=== PATIENT | female | born 1985 | race Caucasian/White ===

== ENCOUNTER → 2017-12-23 | Outpatient (CLI) | payer OTHER ==
[~2017-12-23] VITALS: Ht 167.6 cm; Wt 60.6 kg
[~2017-12-23] MED LIST: HYDROCODON-ACE1 EAC7 PO; IBUPROFEN800 MG PO; MOTRIN800 MG PO; PRENATAL TABLE1 EACH PO; [UNRECOGNIZED DRUG - OTHER] PO
[2017-12-23 08:42] VITALS: BP 99/56
== END | disposition home or self-care (01) ==
LOC: IVINF 08:29
DX: O03.9 Complete or unspecified spontaneous abortion without complication (principal)
CPT/HCPCS: 96372; J2790